=== PATIENT | female | born 1965 | race Caucasian/White ===

== ENCOUNTER 2016-05-30 07:36 | Emergency (ER) | payer BC, OTHER ==
[~2016-05-30] VITALS: Ht 152.4 cm; Wt 52.2 kg
[2016-05-30] MEDS ORDERED: DEXA1OPD OS (07:55)
[2016-05-30] MEDS ORDERED: LATA5OPD (07:55)
[2016-05-30] MEDS ORDERED: IBUPROFEN 800 MG TAB PO ONE (08:15)
[2016-05-30] MEDS ORDERED: ONDANSETRON 4 MG ORAL DISINTEGRATING TAB (S0181) PO ONE (08:30)
[2016-05-30] MEDS ORDERED: AUGM875T27 PO (09:13)
[2016-05-30] MEDS ORDERED: ZOFR4TAB3 PO (09:13)
[2016-05-30 09:15] VITALS: BP 133/81
[2016-05-30] MEDS ORDERED: AUGMENTIN 875 MG TAB PO ONE (09:15)
--- NOTE | 2016-05-30 09:36 | REP ---
TWO VIEW CHEST: COMPARISON: 10/01/2007 There is no evidence of acute infiltrate. No pleural effusion is seen. The heart is normal in size. The mediastinal silhouette is unremarkable. The visualized osseous structures are intact. IMPRESSION: No acute pulmonary disease. Signed by Mark Gil MD 05/30/2016 12:14 P
== END 2016-05-30 09:28 | disposition home or self-care (01) ==
LOC: M ED 08:39
DX: J10.1 Influenza due to other identified influenza virus with other respiratory manifestations (principal); H66.93 Otitis media, unspecified, bilateral

== ENCOUNTER → 2017-01-21 | Outpatient (CLI) | payer OTHER ==
[~2017-01-21] MED LIST: AUGM875T28 PO; DEXA1OPD OS; LATA5OPD; ZOFR4TAB3 PO
[2017-01-21 11:15] LABS: BASO % 0.3 % (0.0-1.0); EOS # 0.2 10^3/uL (0.0-0.50); EOS % 2.7 % (0.0-3.0); IMMATURE GRANULOCYTE % 0.3 % (0-0); LYMPH % 32.6 % (24.0-44.0); MEAN CORPUSCULAR HEMOGLOBIN 31.6 pg (27.0-33.0); MEAN CORPUSCULAR HGB CONC 34.3 g/dl (32.0-36.5); MEAN CORPUSCULAR VOLUME 92.3 fl (80.0-96.0); MONO # 0.4 10^3/uL (0.0-0.8); MONO % 7.2 % (0.0-5.0); NEUTROPHILS # 3.4 10^3/uL (1.8-7.7); NEUTROPHILS % 56.9 % (36.0-66.0); PLATELET COUNT, AUTOMATED 289 10^3/uL (150-450); RED CELL DISTRIBUTION WIDTH 12.6 % (11.5-14.5)
[2017-01-21 11:43] LABS: ALBUMIN 3.8 GM/DL (3.2-5.2); ALBUMIN/GLOBULIN RATIO 1.06 (1.00-1.93); ALKALINE PHOSPHATASE 73 U/L (45-117); ALT/SGPT 17 U/L (12-78); ANION GAP 8 MEQ/L (8-16); AST/SGOT 14 U/L (7-37); BILIRUBIN,TOTAL 0.5 MG/DL (0.2-1.0); BLOOD UREA NITROGEN 14 MG/DL (7-18); CALCIUM LEVEL 9.1 MG/DL (8.5-10.1); CARBON DIOXIDE LEVEL 26 MEQ/L (21-32); CHLORIDE LEVEL 104 MEQ/L (98-107); CHOLESTEROL LEVEL 204 MG/DL (<200); CREATININE FOR GFR 0.64 MG/DL (0.55-1.02); FREE T4 0.84 NG/DL (0.76-1.46); GLOMERULAR FILTRATION RATE > 60.0 (>51); GLUCOSE, FASTING 84 MG/DL (70-105); POTASSIUM SERUM 4.2 MEQ/L (3.5-5.1); SODIUM LEVEL 138 MEQ/L (136-145); TOTAL PROTEIN 7.4 GM/DL (6.4-8.2); TRIGLYCERIDES LEVEL 210 MG/DL (<150)
[2017-01-21 12:08] LABS: ERYTHROCYTE SEDIMENTATION RATE 16 mm/hr (0-30)
== END ==
LOC: M LAB 10:40
PROVIDERS: ATTEND Nurse Practitioner Adult Health
DX: K50.90 Crohn's disease, unspecified, without complications (principal); E78.5 Hyperlipidemia, unspecified; K13.79 Other lesions of oral mucosa; A69.20 Lyme disease, unspecified; K52.9 Noninfective gastroenteritis and colitis, unspecified

== ENCOUNTER 2017-02-13 06:54 | Emergency (ER) | payer OTHER ==
[~2017-02-13] VITALS: Ht 152.4 cm; Wt 52.3 kg
[2017-02-13] MEDS ORDERED: methylPREDNISolone INJ 125 MG/2 ML VIAL (J2930) As Ordered ONE (07:23)
[2017-02-13] MEDS ORDERED: methylPREDNISolone INJ 125 MG/2 ML VIAL (J2930) IV ONE (07:30)
[2017-02-13] MEDS ORDERED: diphenhydrAMINE INJ 50MG/ML VIAL (J1200) IV ONE (07:30)
[2017-02-13] MEDS ORDERED: LORazepam 2 MG/ML VIAL (J2060) IV STA (07:37)
[2017-02-13] MEDS ORDERED: predniSONE 20 MG TAB PO ONE (07:45)
[2017-02-13] MEDS ORDERED: PRED20TA PO (09:49)
[2017-02-13] MEDS ORDERED: BENA25TA10 PO (09:50)
[2017-02-13] MEDS ORDERED: CEFT250S PO (09:52)
[2017-02-13 10:39] VITALS: BP 150/101
== END 2017-02-13 11:04 | disposition home or self-care (01) ==
LOC: M ED 06:54
DX: R21 Rash and other nonspecific skin eruption (principal); T36.95XA Adverse effect of unspecified systemic antibiotic, initial encounter; Y92.89 Other specified places as the place of occurrence of the external cause; Y93.89 Activity, other specified; Y99.8 Other external cause status; K50.90 Crohn's disease, unspecified, without complications; Z88.0 Allergy status to penicillin; Z88.1 Allergy status to other antibiotic agents; Z88.8 Allergy status to other drugs, medicaments and biological substances
CPT/HCPCS: 93041; 94760; 96374; 96375; 99285; J1200; J2930

== ENCOUNTER → 2017-03-04 | Outpatient (REF) | payer OTHER ==
[2017-03-04 16:17] LABS: APPEARANCE, URINE CLEAR (CLEAR); BACTERIA, URINE AUTO NEGATIVE (NEGATIVE); BILIRUBIN, URINE AUTO NEGATIVE (NEGATIVE); BLOOD, URINE BLOOD 1+ (NEGATIVE); COLOR, URINE STRAW (YELLOW); GLUCOSE, URINE (UA) AUTO NEGATIVE (NEGATIVE); KETONE, URINE AUTO NEGATIVE (NEGATIVE); LEUKOCYTE ESTERASE, URINE AUTO 2+ (NEGATIVE); NITRITE, URINE AUTO NEGATIVE (NEGATIVE); PROTEIN, URINE AUTO NEGATIVE (NEGATIVE); RBC, URINE AUTO 1 /HPF (0-3); SPECIFIC GRAVITY URINE AUTO 1.006 (1.002-1.035); SQUAMOUS EPITHELIAL CELL UR AU 0 /HPF (0-6); UROBILINOGEN, URINE AUTO 0.2 mg/dL (0.0-2.0); WBC, URINE AUTO 4 /HPF (0-3)
== END ==
LOC: M SMT 15:53
DX: R30.0 Dysuria (principal)
CPT/HCPCS: 81001

== ENCOUNTER → 2018-02-20 | Outpatient (CLI) | payer OTHER ==
[~2018-02-20] MED LIST changes: +BENA25TA10 PO; +BIOT2500 PO; +CEFT250S PO; +FISH1000 PO; +FOLI1TAB11 PO; +METH2.5T48 PO; +PENT10CA PO; +PRED20TA PO; +ZOFR4TAB14 PO; -ZOFR4TAB3 PO
[2018-02-20 07:55] LABS: BASO % 0.3 % (0.0-1.0); EOS # 0.2 10^3/uL (0.0-0.50); EOS % 3.3 % (0.0-3.0); HEMOGLOBIN 12.4 g/dl (12.0-15.5); LYMPH # 2.1 10^3/uL (1.5-4.5); LYMPH % 33.4 % (24.0-44.0); MEAN CORPUSCULAR HEMOGLOBIN 31.2 pg (27.0-33.0); MEAN CORPUSCULAR HGB CONC 34.4 g/dl (32.0-36.5); MEAN CORPUSCULAR VOLUME 90.5 fl (80.0-96.0); MONO # 0.5 10^3/uL (0.0-0.8); MONO % 7.8 % (0.0-5.0); NEUTROPHILS # 3.5 10^3/uL (1.8-7.7); NEUTROPHILS % 54.9 % (36.0-66.0); PLATELET COUNT, AUTOMATED 284 10^3/uL (150-450); RED BLOOD COUNT 3.98 10^6/uL (4.00-5.40); WHITE BLOOD COUNT 6.3 10^3/uL (4.0-10.0)
[2018-02-20 09:06] LABS: ALBUMIN 3.6 GM/DL (3.2-5.2); ALT/SGPT 23 U/L (12-78); BILIRUBIN,TOTAL 0.4 MG/DL (0.2-1.0); BLOOD UREA NITROGEN 9 MG/DL (7-18); CALCIUM LEVEL 8.6 MG/DL (8.5-10.1); CARBON DIOXIDE LEVEL 27 MEQ/L (21-32); CHLORIDE LEVEL 107 MEQ/L (98-107); CHOLESTEROL LEVEL 173 MG/DL (<200); CHOLESTEROL RISK RATIO 3.089 (<5); CREATININE FOR GFR 0.56 MG/DL (0.55-1.30); FREE T4 0.84 NG/DL (0.76-1.46); GLOMERULAR FILTRATION RATE > 60.0 (>51); GLUCOSE, FASTING 93 MG/DL (70-100); HDL CHOLESTEROL 56 MG/DL (>40); LDL CHOLESTEROL 84 MG/DL (<100); NON-HDL-C 117 MG/DL; SODIUM LEVEL 140 MEQ/L (136-145); TOTAL PROTEIN 7.3 GM/DL (6.4-8.2); TRIGLYCERIDES LEVEL 166 MG/DL (<150)
== END ==
LOC: M LAB 07:20
PROVIDERS: ATTEND Physician Assistant Medical
DX: R53.83 Other fatigue (principal); I10 Essential (primary) hypertension; E78.2 Mixed hyperlipidemia

== ENCOUNTER 2018-02-26 10:30 | Day surgery (SDC) | payer OTHER ==
[~2018-02-26] VITALS: Ht 152.4 cm; Wt 58.9 kg
[~2018-02-26 10:30] MED LIST changes: +LIDOCAINE 3.5 % 1ML OPHTH TOPICAL GEL OU ONE
[2018-02-26] MEDS ORDERED: fentaNYL 100 MCG/2 ML INJECTION (J3010) As Ordered ONE (11:09)
[2018-02-26] MEDS ORDERED: MIDAZOLAM INJ 2 MG/2 ML VIAL (J2250) As Ordered ONE (11:09)
[2018-02-26] MEDS ORDERED: PROPOFOL 200 MG/20 ML VIAL As Ordered ONE ×2 (11:10→12:33)
[2018-02-26] MEDS ORDERED: LIDOCAINE 2% INJ 100 MG/5 ML SDV (FOR ANES.) As Ordered ONE (12:08)
[2018-02-26] MEDS ORDERED: LIDOCAINE 2% W/EPIN INJ 20ML **PRES FREE As Ordered ONE (12:17)
[2018-02-26] MEDS ORDERED: MAXITROL OPHTH SUSP 5 ML As Ordered ONE ×2 (12:26→13:00)
[2018-02-26] MEDS ORDERED: MAXITROL OPHTH OINT 3.5 GM As Ordered ONE (12:27)
[2018-02-26 13:55] VITALS: BP 153/78
[2018-02-26] MEDS ORDERED: ACETAMINOPHEN 500 MG TAB As Ordered ONE (14:01)
[2018-02-26] MEDS ORDERED: ACETAMINOPHEN 500 MG TAB PO ONE (14:15)
--- NOTE | 2018-03-05 17:25 | RO ---
DATE OF PROCEDURE: 02/26/2018 PREPROCEDURE DIAGNOSIS: Epiphora both eyes. POSTPROCEDURE DIAGNOSES: Epiphora both eyes. OPERATIVE PROCEDURE: Bilateral upper and lower punctal dilatation, canalicular probe and lacrimal irrigation upper and lower systems both eyes. In addition a punctal plug was removed from the left lower lids punctum. SURGEON: Erasto Tracy Jr., DO, FACS COMMISSIONS ANALYST: None. ANESTHESIA: Local 2% lidocaine with epinephrine. ESTIMATED BLOOD LOSS: Minimal. COMPLICATIONS: None. SPECIMENS: The punctal plug was removed. It was not sent to pathology. INDICATION: Tearing epiphora both eyes. DESCRIPTION OF PROCEDURE: After obtaining informed consent, the patient was taken to the operating room and a time-out was performed confirming we had the correct patient and operative sites. The lids were prepped in a sterile fashion. The upper and lower puncta were dilated. The canaliculi were probed and lacrimal systems irrigated both eyes. 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 It was difficult to probe these uppers. We established flow to the lacrimal system of both eyes and the lacrimal system was also irrigated with balance salt solution and Maxitrol drops. The patient tolerated the procedure well. She will take Maxitrol drops both eyes four times a day and will followup in the office. She was returned to recovery area in excellent condition.
== END 2018-02-26 14:18 | disposition home or self-care (01) ==
LOC: M SDC 10:30
PROVIDERS: ATTEND Ophthalmology
DX: H04.223 Epiphora due to insufficient drainage, bilateral (principal); H40.009 Preglaucoma, unspecified, unspecified eye; K50.90 Crohn's disease, unspecified, without complications; L43.9 Lichen planus, unspecified; G43.109 Migraine with aura, not intractable, without status migrainosus; K21.9 Gastro-esophageal reflux disease without esophagitis; B15.9 Hepatitis A without hepatic coma; Z88.1 Allergy status to other antibiotic agents; Z88.8 Allergy status to other drugs, medicaments and biological substances; Z91.09 Other allergy status, other than to drugs and biological substances; Z79.899 Other long term (current) drug therapy; Z92.21 Personal history of antineoplastic chemotherapy
CPT/HCPCS: 68801; J2250; J3010

== ENCOUNTER → 2018-09-02 | Outpatient (CLI) | payer OTHER ==
[~2018-09-02] MED LIST changes: +LATA0.0013; -LATA5OPD; -LIDOCAINE 3.5 % 1ML OPHTH TOPICAL GEL OU ONE
[2018-09-04 00:06] LABS: Lyme Disease IgG/IgM Antibodie <0.91 ISR (0.00-0.90); Lyme Disease IgM Ab Quantitati <0.80 index (0.00-0.79)
== END ==
LOC: M LAB 08:29
PROVIDERS: ATTEND Physician Assistant
DX: Z13.9 Encounter for screening, unspecified (principal); W57.XXXD Bitten or stung by nonvenomous insect and other nonvenomous arthropods, subsequent encounter; Y92.89 Other specified places as the place of occurrence of the external cause

== ENCOUNTER → 2018-10-14 | Outpatient (CLI) | payer OTHER ==
--- NOTE | 2018-10-14 08:25 | REP ---
Left humerus two views : There is no fracture or dislocation. Mineralization and joint spaces are normal. There are no calcifications or foreign bodies. Impression: Negative left humerus . Electronically Signed by Mark Thompson MD 10/14/2018 08:17 A
== END ==
LOC: M RAD 07:52
PROVIDERS: ATTEND Internal Medicine Cardiovascular Disease
DX: M79.602 Pain in left arm (principal)

== ENCOUNTER → 2019-03-26 | Outpatient (REF) | payer OTHER ==
[2019-03-26 14:14] LABS: AMORPHOUS SEDIMENT MODERATE (NEGATIVE); APPEARANCE, URINE TURBID (CLEAR); BACTERIA, URINE AUTO NEGATIVE (NEGATIVE); BILIRUBIN, URINE AUTO NEGATIVE (NEGATIVE); BLOOD, URINE BLOOD NEGATIVE (NEGATIVE); GLUCOSE, URINE (UA) AUTO NEGATIVE (NEGATIVE); KETONE, URINE AUTO NEGATIVE (NEGATIVE); LEUKOCYTE ESTERASE, URINE AUTO NEGATIVE (NEGATIVE); NITRITE, URINE AUTO NEGATIVE (NEGATIVE); PROTEIN, URINE AUTO NEGATIVE (NEGATIVE); RBC, URINE AUTO 0 /HPF (0-3); SPECIFIC GRAVITY URINE AUTO 1.024 (1.002-1.035); SQUAMOUS EPITHELIAL CELL UR AU 0 /HPF (0-6); UROBILINOGEN, URINE AUTO 0.2 mg/dL (0.0-2.0); WBC, URINE AUTO 0 /HPF (0-3)
[2019-03-26 14:16] LABS: COLOR, URINE YELLOW (YELLOW)
== END ==
LOC: M SMT 13:31
PROVIDERS: ATTEND Specialist
DX: R30.0 Dysuria (principal)

== ENCOUNTER → 2019-06-15 | Outpatient (REF) | payer OTHER | LOC: M SFHCWAGY 10:16 | PROVIDERS: ATTEND Nurse Practitioner Women's Health | DX: R87.615 Unsatisfactory cytologic smear of cervix (principal); Z12.4 Encounter for screening for malignant neoplasm of cervix ==

== ENCOUNTER → 2019-06-25 | Outpatient (CLI) | payer OTHER ==
--- NOTE | 2019-06-25 15:14 | REPMRS ---
Patient History The patient states she had a clinical breast exam in May 2019. Family history of lung cancer in mother, lung cancer in father, ovarian cancer in maternal grandmother, uterine cancer in maternal aunt. Digital Woman Screen Mammo: June 25, 2019 - Exam #: [id number] Bilateral CC and MLO view(s) were taken. Technologist: Marianela Rodrigues, Technologist FINDINGS: There are scattered fibroglandular densities. The Volpara volumetric breast density category is: B. There is a 2.6 cm oval-shaped well-circumscribed nodule in the upper outer quadrant of the left breast which merits further evaluation. There are two smaller nodular opacities in the right lateral breast as well. There is no other evidence of dominant mass, architectural distortion, or grouped microcalcification typical of malignancy. 3-D tomosynthesis shows no additional findings. Assessment: BI-RADS/ACR category 0 mammogram, Incomplete: Need additional imaging evaluation and/or prior mammograms for comparison. Recommendation Ultrasound and special view mammogram of both breasts. This patient's Lifetime Breast Cancer RIsk is estimated at 8.8 %. This mammogram was interpreted with the aid of an FDA-approved computer-aided dectection system. Electronically Signed By: Blayne Guillermo MD 06/25/19 1919
== END ==
LOC: M WHC 13:42
PROVIDERS: ATTEND Physician Assistant
DX: Z12.31 Encounter for screening mammogram for malignant neoplasm of breast (principal); Z80.1 Family history of malignant neoplasm of trachea, bronchus and lung; Z80.41 Family history of malignant neoplasm of ovary; Z80.49 Family history of malignant neoplasm of other genital organs; N63.21 Unspecified lump in the left breast, upper outer quadrant

== ENCOUNTER → 2019-07-09 | Outpatient (CLI) | payer OTHER ==
--- NOTE | 2019-07-14 15:50 | REP ---
DIGITAL DIAGNOSTIC BILATERAL MAMMOGRAPHY WITH CAD AND FOCUSED BILATERAL BREAST SONOGRAPHY: HISTORY: Screening mammography from June 25, 2019 is BI-RADS category 0 because of bilateral upper outer quadrant nodular opacities. No remote prior mammography. MAMMOGRAPHIC FINDINGS: Magnified focal spot compression CC, true mediolateral, and MLO views of each breast were obtained. There are two well-circumscribed nodular opacities in each breast, upper outer quadrant. On the right, the nodular opacities each measure 1.3 cm in greatest diameter and are near each other in the right lateral breast at approximately 9-o'clock position. On the left, there are two nodular densities immediately adjacent to one another, versus one bilobed density. It is well circumscribed. In the aggregate, it measures 2.5 cm in greatest diameter. No other mammographic finding. SONOGRAPHIC FINDINGS: Sonographic evaluation is performed in two settings. The patient was recalled on 14 Jul 2019 at my request for additional bilateral sonography. The right breast is scanned from 8-o'clock position to 12-o'clock through the upper outer quadrant. 4 cm from the nipple in the 8-o'clock position, there is a 8 x 9 x 4 mm hypoechoic area which may account for one of the mammographic opacities. This does not meet criteria of a simple cyst. Its long axis is parallel to the skin. Histologic sampling is recommended. In addition, in the right breast at 9-o'clock position, there is a 1.2 x 1.1 x 0.6 cm hypoechoic nodule with its long axis parallel to the skin located 2.4 cm from the nipple. This appears sonographically solid and is felt to correspond with the other mammographic opacity. This should be sampled sonographically as well. Also noted in the right breast in the 10-o'clock position 4 cm from the nipple, is a 1.4 x 1.1 x 0.5 cm cyst. In the left breast upper outer quadrant, scanning demonstrates a bilobed hypoechoic area measuring 2.1 x 1.4 x 1.9 cm located in the 2-o'clock position, 4 cm from the nipple. This is felt to correspond to the bilobed appearing mammographic opacity. By ultrasound, this appears to contain a central hyperechoic area, possibly representing a hypertrophied intramammary lymph node with hilar fat. Given its size and appearance, however, I would recommend histologic sampling. IMPRESSION: BIRADS 4: BI-RADS/ACR category 4 mammogram. Suspicious Abnormality - biopsy should be considered. BI-RADS category 4 suspicious bilateral breast imaging. Solid-appearing lesions in the lateral aspect and upper outer quadrant of the right breast and in the upper outer quadrant of the left breast. There are two solid lesions on the right and one on the left. These merit ultrasound-guided needle biopsy procedure and marker clip placement with post marker clip placement mammography. This mammogram was interpreted with the aid of an FDA-approved computer-aided detection system. The patient letter being requested is M4.
== END ==
LOC: M WHC 13:12
PROVIDERS: ATTEND Physician Assistant
DX: Z12.31 Encounter for screening mammogram for malignant neoplasm of breast (principal)
CPT/HCPCS: 76642; 77066; G0279

== ENCOUNTER → 2020-06-03 | Outpatient (CLI) | payer OTHER ==
[2020-06-03 16:36] LABS: BLOOD UREA NITROGEN 14 MG/DL (7-18); CALCIUM LEVEL 9.4 MG/DL (8.5-10.1); CARBON DIOXIDE LEVEL 28 MEQ/L (21-32); CHLORIDE LEVEL 106 MEQ/L (98-107); CREATININE FOR GFR 0.66 MG/DL (0.55-1.30); GLOMERULAR FILTRATION RATE > 60.0 (>51); GLUCOSE, FASTING 95 MG/DL (70-100); MAGNESIUM LEVEL 2.2 MG/DL (1.8-2.4); POTASSIUM SERUM 3.4 MEQ/L (3.5-5.1); SODIUM LEVEL 140 MEQ/L (136-145)
[2020-06-03 16:50] LABS: TOTAL 25(OH) VITAMIN D 23.3 NG/ML (30.0-100.0); VITAMIN B12 LEVEL 506 PG/ML (247-911)
== END ==
LOC: M WUC 13:51
PROVIDERS: ATTEND Nurse Practitioner Family
DX: K21.9 Gastro-esophageal reflux disease without esophagitis (principal); K57.30 Diverticulosis of large intestine without perforation or abscess without bleeding; K44.9 Diaphragmatic hernia without obstruction or gangrene; E55.9 Vitamin D deficiency, unspecified

== ENCOUNTER → 2020-07-05 | Outpatient (REF) | payer OTHER | LOC: M WUC 09:22 | PROVIDERS: ATTEND Nurse Practitioner Family | DX: E87.6 Hypokalemia (principal) ==

== ENCOUNTER → 2020-08-17 | Outpatient (CLI) | payer OTHER | LOC: M WUC 08:15 | PROVIDERS: ATTEND Nurse Practitioner Family | DX: E55.9 Vitamin D deficiency, unspecified (principal) ==

== ENCOUNTER → 2022-01-03 | Outpatient (REF) | payer OTHER ==
[2022-01-03 11:53] LABS: HEMATOCRIT 38.7 % (36.0-47.0); HEMOGLOBIN 12.8 g/dl (12.0-15.5); MEAN CORPUSCULAR HEMOGLOBIN 31.7 pg (27.0-33.0); MEAN CORPUSCULAR HGB CONC 33.1 g/dl (32.0-36.5); MEAN CORPUSCULAR VOLUME 95.8 fl (80.0-96.0); PLATELET COUNT, AUTOMATED 253 10^3/uL (150-450); RED BLOOD COUNT 4.04 10^6/uL (4.00-5.40); WHITE BLOOD COUNT 5.7 10^3/uL (4.0-10.0)
[2022-01-03 12:24] LABS: ALBUMIN 3.9 GM/DL (3.2-5.2); BLOOD UREA NITROGEN 14 MG/DL (7-18); CALCIUM LEVEL 9.1 MG/DL (8.5-10.1); CARBON DIOXIDE LEVEL 26 MEQ/L (21-32); CHLORIDE LEVEL 107 MEQ/L (98-107); CHOLESTEROL LEVEL 204 MG/DL (<200); CREATININE FOR GFR 0.66 MG/DL (0.55-1.30); FERRITIN 172 NG/ML (8-252); FREE T4 0.89 NG/DL (0.76-1.46); GLOMERULAR FILTRATION RATE > 60.0 (>51); GLUCOSE, FASTING 81 MG/DL (70-100); HDL CHOLESTEROL 60 MG/DL (>40); IRON (FE) 67 UG/DL (50-170); LDL CHOLESTEROL 118 MG/DL (<100); NON-HDL-C 144 MG/DL; PERCENT SATURATION 18.8 % (13.2-45.0); PHOSPHORUS LEVEL 3.5 MG/DL (2.5-4.9); SODIUM LEVEL 138 MEQ/L (136-145); TOTAL IRON BINDING CAPACITY 357 UG/DL (250-450); TRIGLYCERIDES LEVEL 130 MG/DL (<150)
[2022-01-03 12:56] LABS: FOLATE 14.7 NG/ML
[2022-01-03 15:01] LABS: VITAMIN B12 LEVEL 549 PG/ML
== END ==
LOC: M LABWUC 10:00
PROVIDERS: ATTEND Physician Assistant
DX: D64.9 Anemia, unspecified (principal); E78.5 Hyperlipidemia, unspecified; R53.83 Other fatigue

== ENCOUNTER → 2022-05-25 | Outpatient (CLI) | payer OTHER ==
[2022-05-25 17:56] LABS: HEMATOCRIT 39.8 % (36.0-47.0); HEMOGLOBIN 13.2 g/dl (12.0-15.5); MEAN CORPUSCULAR HEMOGLOBIN 32.3 pg (27.0-33.0); MEAN CORPUSCULAR HGB CONC 33.2 g/dl (32.0-36.5); MEAN CORPUSCULAR VOLUME 97.3 fl (80.0-96.0); PLATELET COUNT, AUTOMATED 310 10^3/uL (150-450); RED BLOOD COUNT 4.09 10^6/uL (4.00-5.40)
[2022-05-25 18:26] LABS: FERRITIN 157.1 NG/ML (7.3-270.7)
[2022-05-25 18:27] LABS: ALBUMIN 4.1 G/DL (3.2-5.2); BLOOD UREA NITROGEN 14 MG/DL (9-23); CALCIUM LEVEL 9.2 MG/DL (8.5-10.1); CARBON DIOXIDE LEVEL 28 MMOL/L (20-31); CHLORIDE LEVEL 105 MMOL/L (98-107); CHOLESTEROL LEVEL 206 MG/DL (<200); CHOLESTEROL RISK RATIO 3.58 (<5); CREATININE FOR GFR 0.55 MG/DL (0.55-1.30); FREE T4 1.27 NG/DL (0.89-1.76); GLOMERULAR FILTRATION RATE > 60.0 (>51); GLUCOSE, FASTING 70 MG/DL (60-100); HDL CHOLESTEROL 57.5 MG/DL (>40); IRON (FE) 89 UG/DL (50-170); LDL CHOLESTEROL 83.3 MG/DL (<100); NON-HDL-C 148.5 MG/DL; PERCENT SATURATION 26.1 % (13.2-45.0); PHOSPHORUS LEVEL 4.4 MG/DL (2.5-4.9); POTASSIUM SERUM 4.6 MMOL/L (3.5-5.1); SODIUM LEVEL 141 MMOL/L (136-145); THYROID STIMULATING HORMONE 1.259 uIU/ML (0.55-4.78); TOTAL IRON BINDING CAPACITY 341 UG/DL (250-425); TRIGLYCERIDES LEVEL 326 MG/DL (<150)
[2022-05-25 18:28] LABS: FOLATE > 24.00 NG/ML (>5.4); VITAMIN B12 LEVEL 510 PG/ML (211-911)
[2022-05-28 16:08] LABS: MUMPS VIRUS IgG ANTIBODY >300.0 AU/mL (Immune >10.9); RUBEOLA IgG ANTIBODY >300.0 AU/mL (Immune >16.4)
== END ==
LOC: M WUC 10:17
PROVIDERS: ATTEND Physician Assistant
DX: D64.9 Anemia, unspecified (principal); Z00.8 Encounter for other general examination; R53.83 Other fatigue

== ENCOUNTER → 2022-07-11 | Outpatient (CLI) | payer OTHER | LOC: M WHC 14:43 | PROVIDERS: ATTEND Nurse Practitioner Family | DX: Z01.419 Encounter for gynecological examination (general) (routine) without abnormal findings (principal); M85.88 Other specified disorders of bone density and structure, other site ==

== ENCOUNTER → 2022-07-11 | Outpatient (REF) | payer OTHER | LOC: M SFHCWAGY 15:11 | PROVIDERS: ATTEND Nurse Practitioner Family | DX: Z12.4 Encounter for screening for malignant neoplasm of cervix (principal) ==

== ENCOUNTER 2022-09-16 20:59 | Emergency (ER) | payer OTHER ==
[~2022-09-16] VITALS: Ht 152.4 cm; Wt 125.0 kg
[2022-09-16 20:59] VITALS: BP 175/84; TEMP 97.9; O2SAT 99
[2022-09-16] MEDS ORDERED: CETI-24 (21:05)
[2022-09-16] MEDS ORDERED: BACTDSTA (21:05)
[2022-09-16] MEDS ORDERED: DIPH-319 (21:05)
[2022-09-16] MEDS ORDERED: PRED20TA (21:05)
== END 2022-09-16 23:05 | disposition left against medical advice (07) ==
LOC: M ED 20:59
DX: Z53.21 Procedure and treatment not carried out due to patient leaving prior to being seen by health care provider (principal)

== ENCOUNTER → 2023-01-23 | Outpatient (REF) | payer OTHER ==
[~2023-01-23] MED LIST changes: +BACTDSTA; +CETI-24; +DIPH-429; +PRED20TA
[2023-01-23 13:39] LABS: APPEARANCE, URINE CLEAR (CLEAR); BACTERIA, URINE AUTO NEGATIVE (NEGATIVE); BILIRUBIN, URINE AUTO NEGATIVE (NEGATIVE); BLOOD, URINE BLOOD 1+ (NEGATIVE); COLOR, URINE STRAW (YELLOW); GLUCOSE, URINE (UA) AUTO NEGATIVE (NEGATIVE); KETONE, URINE AUTO NEGATIVE (NEGATIVE); LEUKOCYTE ESTERASE, URINE AUTO NEGATIVE (NEGATIVE); NITRITE, URINE AUTO NEGATIVE (NEGATIVE); PROTEIN, URINE AUTO NEGATIVE (NEGATIVE); RBC, URINE AUTO 0 /HPF (0-3); SPECIFIC GRAVITY URINE AUTO 1.004 (1.002-1.035); SQUAMOUS EPITHELIAL CELL UR AU 0 /HPF (0-6); UROBILINOGEN, URINE AUTO 0.2 mg/dL (0.0-2.0); WBC, URINE AUTO 0 /HPF (0-3)
== END ==
LOC: M SMT 12:50
PROVIDERS: ATTEND Specialist
DX: N30.10 Interstitial cystitis (chronic) without hematuria (principal)

== ENCOUNTER → 2023-05-01 | Outpatient (REF) | payer OTHER | LOC: M SFHCWAGY 13:07 | PROVIDERS: ATTEND Nurse Practitioner Family | DX: N95.0 Postmenopausal bleeding (principal) ==

== ENCOUNTER → 2023-05-21 | Outpatient (CLI) | payer OTHER | LOC: M WHC 15:03 | PROVIDERS: ATTEND Nurse Practitioner Family | DX: N95.0 Postmenopausal bleeding (principal) ==

== ENCOUNTER → 2024-02-14 | Outpatient (CLI) | payer OTHER | LOC: M WUC 10:28 | PROVIDERS: ATTEND Internal Medicine Cardiovascular Disease | DX: M25.552 Pain in left hip (principal) ==

== ENCOUNTER → 2024-03-31 | Outpatient (CLI) | payer OTHER ==
[2024-03-31 10:45] LABS: BASO % 0.4 % (0.0-1.0); EOS # 0.2 10^3/uL (0.0-0.5); EOS % 2.6 % (0.0-3.0); HEMATOCRIT 36.6 % (36.0-47.0); HEMOGLOBIN 12.5 g/dl (12.0-15.5); LYMPH # 2.5 10^3/uL (1.5-5.0); LYMPH % 36.3 % (24.0-44.0); MEAN CORPUSCULAR HEMOGLOBIN 32.4 pg (27.0-33.0); MEAN CORPUSCULAR HGB CONC 34.2 g/dl (32.0-36.5); MEAN CORPUSCULAR VOLUME 94.8 fl (80.0-96.0); MONO # 0.6 10^3/uL (0.0-0.8); MONO % 8.1 % (2.0-8.0); NEUTROPHILS # 3.6 10^3/uL (1.5-8.5); NEUTROPHILS % 52.2 % (36.0-66.0); PLATELET COUNT, AUTOMATED 332 10^3/uL (150-450); RED BLOOD COUNT 3.86 10^6/uL (4.00-5.40); WHITE BLOOD COUNT 6.9 10^3/uL (4.0-10.0)
[2024-03-31 11:04] LABS: HEMOGLOBIN A1c 4.9 % (4.0-6.0)
[2024-03-31 11:10] LABS: ALKALINE PHOSPHATASE 71 U/L (35-104); ALT/SGPT 17 U/L (7.0-40); AST/SGOT 14 U/L (<34); BILIRUBIN,TOTAL 0.4 MG/DL (0.3-1.2); BLOOD UREA NITROGEN 14 MG/DL (9-23); CALCIUM LEVEL 8.9 MG/DL (8.5-10.1); CARBON DIOXIDE LEVEL 29 MMOL/L (20-31); CHLORIDE LEVEL 106 MMOL/L (98-107); CHOLESTEROL LEVEL 203 MG/DL (<200); CHOLESTEROL RISK RATIO 3.31 (<5); GLOMERULAR FILTRATION RATE > 60.0 (>51); GLUCOSE, FASTING 75 MG/DL (60-100); HDL CHOLESTEROL 61.3 MG/DL (>40); LDL CHOLESTEROL 100.9 MG/DL (<100); NON-HDL-C 141.7 MG/DL; POTASSIUM SERUM 4.1 MMOL/L (3.5-5.1); SODIUM LEVEL 142 MMOL/L (136-145); TOTAL PROTEIN 7.1 G/DL (5.7-8.2); TRIGLYCERIDES LEVEL 204 MG/DL (<150)
[2024-03-31 11:11] LABS: THYROID STIMULATING HORMONE 2.647 uIU/ML (0.55-4.78); TOTAL 25(OH) VITAMIN D 41.2 NG/ML (20.0-100.0)
== END ==
LOC: M WUC 08:16
DX: E78.5 Hyperlipidemia, unspecified (principal); K21.9 Gastro-esophageal reflux disease without esophagitis; M25.552 Pain in left hip; D64.9 Anemia, unspecified; R53.83 Other fatigue; I10 Essential (primary) hypertension; E55.9 Vitamin D deficiency, unspecified; Z79.899 Other long term (current) drug therapy

== ENCOUNTER → 2024-05-19 | Outpatient (REF) | payer OTHER ==
[2024-05-19 18:47] LABS: LIPASE 48 U/L (12-53)
[2024-05-19 18:51] LABS: ALBUMIN 4.1 G/DL (3.2-5.2); ALKALINE PHOSPHATASE 85 U/L (35-104); ALT/SGPT 26 U/L (7.0-40); AST/SGOT 17 U/L (<34); BILIRUBIN,DIRECT < 0.1 MG/DL (<0.4); BILIRUBIN,TOTAL 0.3 MG/DL (0.3-1.2); TOTAL PROTEIN 7.3 G/DL (5.7-8.2)
== END ==
LOC: M LABWUC 18:04
PROVIDERS: ATTEND Physician Assistant
DX: R10.13 Epigastric pain (principal); R13.10 Dysphagia, unspecified

== ENCOUNTER → 2024-06-09 | Outpatient (CLI) | payer OTHER | LOC: M WUC 13:15 | PROVIDERS: ATTEND Nurse Practitioner Family | DX: M79.642 Pain in left hand (principal) ==

== ENCOUNTER → 2025-01-15 | Outpatient (CLI) | payer OTHER ==
[2025-01-15 16:07] LABS: ESTIMATED AVERAGE GLUCOSE 100.0 MG/DL (60-110)
[2025-01-15 16:13] LABS: BASO # 0.1 10^3/uL (0.0-0.2); BASO % 0.9 % (0.0-1.0); EOS # 0.2 10^3/uL (0.0-0.5); EOS % 2.7 % (0.0-3.0); LYMPH # 2.0 10^3/uL (1.5-5.0); LYMPH % 31.8 % (24.0-44.0); MONO # 0.5 10^3/uL (0.0-0.8); MONO % 8.5 % (2.0-8.0); NEUTROPHILS # 3.6 10^3/uL (1.5-8.5); NEUTROPHILS % 55.5 % (36.0-66.0); PLATELET COUNT, AUTOMATED 325 10^3/uL (150-450)
[2025-01-15 16:20] LABS: ALT/SGPT 24 U/L (7.0-40); AST/SGOT 19 U/L (<34); CALCIUM LEVEL 9.7 MG/DL (8.5-10.1); CARBON DIOXIDE LEVEL 29 MMOL/L (20-31); CHLORIDE LEVEL 104 MMOL/L (98-107); CHOLESTEROL LEVEL 217 MG/DL (<200); CHOLESTEROL RISK RATIO 3.42 (<5); CREATININE FOR GFR 0.57 MG/DL (0.55-1.30); GLOMERULAR FILTRATION RATE > 90.0 (>51); LDL CHOLESTEROL 103.6 MG/DL (<100); NON-HDL-C 153.6 MG/DL; POTASSIUM SERUM 4.3 MMOL/L (3.5-5.1); SODIUM LEVEL 143 MMOL/L (136-145); TRIGLYCERIDES LEVEL 250 MG/DL (<150)
[2025-01-15 16:23] LABS: FREE T4 1.25 NG/DL (0.89-1.76)
[2025-01-15 16:24] LABS: TOTAL 25(OH) VITAMIN D 52.0 NG/ML (20.0-100.0)
== END ==
LOC: M WUC 08:27
DX: E78.5 Hyperlipidemia, unspecified (principal); K21.9 Gastro-esophageal reflux disease without esophagitis; M25.552 Pain in left hip; I10 Essential (primary) hypertension; D64.9 Anemia, unspecified; R53.83 Other fatigue; E55.9 Vitamin D deficiency, unspecified; Z79.899 Other long term (current) drug therapy